=== PATIENT | male | born 1995 | race Caucasian/White ===

== ENCOUNTER → 2017-01-20 | Outpatient (CLI) | payer BC ==
[2017-01-20 18:45] LABS: Basophils % (A) 0 %; CHCM 33.1; Eosinophils # (A) 0.1 k/uL (0-0.7); Eosinophils % (A) 1 %; HCT 48.8 % (39.0-53.0); HDW 2.54; HGB 15.5 gm/dL (13.0-17.5); Luc # (Auto) 0.11; Luc % (Auto) 1; Lymphocytes # (A) 1.5 k/uL (1.0-4.8); Lymphocytes % (A) 19 %; MCH 30.9 pg (25.0-35.0); MCHC 31.8 g/dL (31.0-37.0); MCV 97.2 fL (80.0-100.0); Mean Platelet Volume 8.6; Monocytes # (A) 0.4 k/uL (0-1.0); Monocytes % (A) 5 %; Neutrophils % (A) 74 %; RBC 5.02 m/uL (4.30-5.90); RDW 14.2 % (11.5-15.5); WBC 8.1 k/uL (4.0-11.0); WBC (Perox) 8.32
[2017-01-20 18:52] LABS: ALT 18 U/L (21-72); AST 30 U/L (17-59); Alkaline Phosphatase 51 U/L (38-126); Anion Gap 11 mmol/L; Blood Urea Nitrogen 14 mg/dL (9-20); Calcium 9.7 mg/dL (8.4-10.2); Carbon Dioxide 27 mmol/L (22-30); Chloride 104 mmol/L (98-107); Glucose 91 mg/dL (74-99); Non-African American GFR(MDRD) >60 (>60 ml/min/1.73 sqM); Potassium 4.1 mmol/L (3.5-5.1); Sodium 142 mmol/L (137-145); Total Protein 7.6 g/dL (6.3-8.2)
== END ==
LOC: MMGSC 16:23
PROVIDERS: ATTEND Family Medicine
DX: R30.0 Dysuria (principal); R31.9 Hematuria, unspecified
CPT/HCPCS: 36415; 80053; 85025

== ENCOUNTER 2020-11-14 18:16 | Emergency (ER) | payer BC ==
[2020-11-14] MEDS ORDERED: DEXAMETHASONE SOD PHOSPHATE 10 MG/ML 1 ML VIAL IM STA (19:41)
[2020-11-14] MEDS ORDERED: CLINDAMYCIN 150 MG CAP PO STA (19:41)
--- NOTE | 2020-11-14 19:47 | ED ---
ENT HPI - General Chief complaint: ENT Stated complaint: Sore Throat/Swelling Time Seen by Provider: 11/14/20 19:10 Source: patient Mode of arrival: ambulatory Limitations: no limitations - History of Present Illness Initial comments: 25-year-old male presents to emergency department with a chief complaint of sore throat. Patient reports for the past 2 years she did having difficulties with enlarged tonsils and he is typically treated with antibiotic. States never officially diagnosed with strep pharyngitis. This most recent case has been on for the past several days with gradual increase in severity. He reports having bilateral enlarged tonsils along with weight exudates. He does report painful swallowing but is still able to tolerate orals. He denies any fevers cough chest pain or shortness of breath. Denies any facial swelling or neck swelling. He denies any nausea or vomiting or diarrhea. Denies any voice changes. - Related Data Previous Rx's Medication Instructions Recorded Clindamycin HCl 300 mg PO TID #30 cap 11/14/20 Allergies Allergy/AdvReac Type Severity Reaction Status Date / Time Penicillins Allergy Anaphylaxis Verified 11/14/20 18:31 Review of Systems ROS Statement: Those systems with pertinent positive or pertinent negative responses have been documented in the HPI. ROS Other: All systems not noted in ROS Statement are negative. Past Medical History Past Medical History: No Reported History History of Any Multi-Drug Resistant Organisms: None Reported Past Surgical History: No Surgical Hx Reported Past Psychological History: No Psychological Hx Reported Smoking Status: Current every day smoker Past Alcohol Use History: Occasional Past Drug Use History: None Reported General Exam Limitations: no limitations General appearance: alert, in no apparent distress Head exam: Present: atraumatic, normocephalic, normal inspection Eye exam: Present: normal appearance, PERRL, EOMI Pupils: Present: normal accommodation ENT exam: Present: normal exam, mucous membranes moist, TM's normal bilaterally, normal external ear exam. Absent: normal oropharynx (Erythematous, bilateral enlarged tonsils without exudates. Uvula midline. No signs of peritonsillar abscess.) Neck exam: Present: normal inspection, full ROM, lymphadenopathy (Anterior cervical lymph nodes). Absent: tenderness Respiratory exam: Present: normal lung sounds bilaterally. Absent: respiratory distress Cardiovascular Exam: Present: regular rate, normal rhythm, normal heart sounds Extremities exam: Present: normal inspection, full ROM, normal capillary refill. Absent: tenderness Back exam: Present: normal inspection, full ROM. Absent: tenderness, CVA tenderness (R), CVA tenderness (L) Neurological exam: Present: alert, oriented X3, normal gait Psychiatric exam: Present: normal affect, normal mood Skin exam: Present: warm, dry, intact, normal color Course Vital Signs 11/14/20 18:28 Temperature 97.9 F Pulse Rate 96 Respiratory 18 Rate Blood Pressure 129/58 O2 Sat by Pulse 100 Oximetry Medical Decision Making - Medical Decision Making 25-year-old male presents to the emergency department with a chief complaint of sore throat. On physical examination, bilateral enlarged tonsils with no exudates. No signs of peritonsillar abscess. I will give him 10 mg of Decadron IM for symptomatically relief. Tylenol Motrin for the pain. We'll start him on clindamycin because he is ALLERGIC to penicillins. Rapid strep is negative. Culture is pending. Return parameters were discussed with patient was up standing and agreeable. Case discussed with Dr. Herrera. - Lab Data Lab Results 11/14/20 Range/Units 18:36 Group A Strep Rapid Negative (Negative) Disposition Clinical Impression: Sore throat, Tonsillitis Disposition: HOME SELF-CARE Condition: Stable Instructions (If sedation given, give patient instructions): Tonsillitis (ED), Tonsillectomy (DC) Additional Instructions: A strep medication as directed. Return to emergency department if symptoms worsen. Is patient prescribed a controlled substance at d/c from ED?: No Referrals: Berenice Flores MD [Primary Care Provider] - 1-2 days Time of Disposition: 19:47
[2020-11-14 20:17] VITALS: BP 138/68; PULSE 80; RESP 20; TEMP 98.3
== END 2020-11-14 20:10 | disposition home or self-care (01) ==
LOC: EC 18:16
DX: J03.90 Acute tonsillitis, unspecified (principal); F17.200 Nicotine dependence, unspecified, uncomplicated; Z88.0 Allergy status to penicillin
CPT/HCPCS: 87081; 87430; 99283; 96372; J1100

== ENCOUNTER 2023-07-24 13:04 | Emergency (ER) | payer SELFPAY ==
--- NOTE | 2023-07-24 13:41 | ED ---
Psych HPI - General Chief Complaint: Psychiatric Symptoms Stated Complaint: Petitioned-Mental Health Time Seen by Provider: 07/24/23 13:24 Source: patient, police, RN notes reviewed, old records reviewed Mode of arrival: ambulatory - History of Present Illness Initial Comments: This is a 28-year-old male presenting for psychiatric illness petition for psychiatric evaluation. Patient allegedly was making statements to his family about having a shock is not using it to either kill them or himself. Patient does admit to increased stressors lately including being around his family. Does admit alcohol intoxication, patient is brought in under police petition MD Complaint: suicidal ideation, feels depressed, altered mental status, other (Homicidal ideation) -: hour(s) Associated Psychiatric Symptoms: depression, suicidal ideation, racing thoughts Quality: constant Context: recent alcohol abuse, significant life stressor Associated Symptoms: denies other symptoms Treatments Prior to Arrival: placed on mental health hold - Related Data Home Medications Medication Instructions Recorded Confirmed No Known Home Medications 07/24/23 07/24/23 Allergies Allergy/AdvReac Type Severity Reaction Status Date / Time Penicillins Allergy Anaphylaxis Verified 07/24/23 19:26 Review of Systems ROS Statement: Those systems with pertinent positive or pertinent negative responses have been documented in the HPI. ROS Other: All systems not noted in ROS Statement are negative. Past Medical History Past Medical History: No Reported History History of Any Multi-Drug Resistant Organisms: None Reported Past Surgical History: No Surgical Hx Reported Past Psychological History: No Psychological Hx Reported Smoking Status: Current every day smoker Past Alcohol Use History: Occasional Past Drug Use History: None Reported General Exam Limitations: no limitations General appearance: alert, in no apparent distress Head exam: Present: atraumatic, normocephalic, normal inspection Eye exam: Present: normal appearance, PERRL, EOMI. Absent: scleral icterus, conjunctival injection, periorbital swelling ENT exam: Present: normal exam, mucous membranes moist Neck exam: Present: normal inspection. Absent: tenderness, meningismus, lymphadenopathy Respiratory exam: Present: normal lung sounds bilaterally. Absent: respiratory distress, wheezes, rales, rhonchi, stridor Cardiovascular Exam: Present: regular rate, normal rhythm, normal heart sounds. Absent: systolic murmur, diastolic murmur, rubs, gallop, clicks GI/Abdominal exam: Present: soft, normal bowel sounds. Absent: distended, tenderness, guarding, rebound, rigid Extremities exam: Present: normal inspection, full ROM, normal capillary refill. Absent: tenderness, pedal edema, joint swelling, calf tenderness Back exam: Present: normal inspection Neurological exam: Present: alert, oriented X3, CN II-XII intact Psychiatric exam: Present: normal affect, normal mood Skin exam: Present: warm, dry, intact, normal color. Absent: rash Course Vital Signs 07/24/23 07/24/23 07/24/23 13:14 19:07 20:22 Temperature 99.4 F 99.1 F 98.9 F Pulse Rate 128 H 112 H 109 H Respiratory 22 18 18 Rate Blood Pressure 148/56 130/73 128/73 O2 Sat by Pulse 96 97 98 Oximetry - Reevaluation(s) Reevaluation #1: 07/24/23 13:40 Medical record is reviewed Reevaluation #2: Medical clear for psychiatric evaluation Medical Decision Making - Medical Decision Making 28 male to the emergency department for alcohol use psychiatric illness patient was petition here and seen eval by psychiatry for evaluation. Patient is deemed stable for discharge home - Lab Data Lab Results 07/24/23 Range/Units 13:45 Urine Opiates Screen Not Detected (NotDetected) Ur Oxycodone Screen Not Detected (NotDetected) Urine Methadone Screen Not Detected (NotDetected) Ur Barbiturates Screen Not Detected (NotDetected) U Tricyclic Antidepress Not Detected (NotDetected) Ur Phencyclidine Scrn Not Detected (NotDetected) Ur Amphetamines Screen Not Detected (NotDetected) U Methamphetamines Scrn Not Detected (NotDetected) U Benzodiazepines Scrn Not Detected (NotDetected) Urine Cocaine Screen Detected H (NotDetected) U Marijuana (THC) Screen Not Detected (NotDetected) Ur Drug Screen Comment SEE COMMENT Disposition Clinical Impression: Drug-induced psychotic disorder Disposition: HOME SELF-CARE Condition: Fair Instructions (If sedation given, give patient instructions): Brief Psychotic Disorder (ED) Is patient prescribed a controlled substance at d/c from ED?: No Referrals: None,Stated [Primary Care Provider] - 1-2 days
[2023-07-24 14:47] LABS: Cocaine Screen,Urine Detected (NotDetected); Phencyclidine Screen,Urine Not Detected (NotDetected); Urn Cannabinoid Scrn Not Detected (NotDetected)
[2023-07-24 14:48] LABS: Amphetamine Screen,Urine Not Detected (NotDetected); Barbiturate Screen,Urine Not Detected (NotDetected); Benzodiazepines Screen,Urine Not Detected (NotDetected); Methadone Screen, Urine Not Detected (NotDetected); Opiate Screen,Urine Not Detected (NotDetected); Oxycodone Screen, Urine Not Detected (NotDetected); Tricyclic Antidepressant,Urine Not Detected (NotDetected)
[2023-07-24 19:14] VITALS: RESP 18
[2023-07-24 20:44] VITALS: BP 128/73; PULSE 109; TEMP 98.9
== END 2023-07-24 20:24 | disposition home or self-care (01) ==
LOC: EC 13:04
DX: F19.959 Other psychoactive substance use, unspecified with psychoactive substance-induced psychotic disorder, unspecified (principal); F17.200 Nicotine dependence, unspecified, uncomplicated; Z88.0 Allergy status to penicillin
CPT/HCPCS: 80306; 82075; 99285